=== PATIENT | male | born 1945 | race Caucasian/White ===

== ENCOUNTER → 2017-03-02 | Outpatient (REF) | payer MEDICARE ==
[2017-03-02 18:20] LABS: FERRITIN 259 NG/ML (26-388); TOTAL IRON BINDING CAPACITY 227 UG/DL (250-450)
[2017-03-02 21:02] LABS: VITAMIN B12 LEVEL 673 PG/ML
[2017-03-02 21:03] LABS: FOLATE 11.4 NG/ML
== END ==
LOC: M LAB REF 17:24
DX: N18.9 Chronic kidney disease, unspecified (principal); D63.1 Anemia in chronic kidney disease
CPT/HCPCS: 82746

== ENCOUNTER → 2017-06-15 | Outpatient (REF) | payer MEDICARE ==
[2017-06-15 13:37] LABS: OSMOLALITY URINE 413 MOSM/KG (500-800)
[2017-06-15 13:54] LABS: SODIUM,RANDOM URINE 97 MEQ/L
== END ==
LOC: M LAB REF 12:58
DX: E87.1 Hypo-osmolality and hyponatremia (principal); N18.4 Chronic kidney disease, stage 4 (severe)
CPT/HCPCS: 83935

== ENCOUNTER → 2018-07-18 | Outpatient (REF) | payer MEDICARE ==
[~2018-07-18] MED LIST: ALLO300T2 PO; AMLO5TAB2 PO; ATEN50TA2 PO; BENZ200C PO; CALC0.25 PO; COUM1TAB17 PO; CRES5TAB PO; DUONSOL IN; FISH100035 PO; INSULANT SC; LASI80TA PO; MILK10SU PO; NEXI1CAP3 PO; NYAM10003 TOP; PERC5TAB PO; POTA2INJ30 PO; SENO8.6T9 PO; TYLE325T5 PO
[2018-07-18 16:08] LABS: BASO # 0.1 10^3/uL (0.0-0.2); EOS # 0.2 10^3/uL (0.0-0.50); EOS % 2.7 % (0.0-3.0); HEMATOCRIT 33.8 % (42.0-52.0); HEMOGLOBIN 10.7 g/dl (13.5-17.5); LYMPH # 1.4 10^3/uL (1.5-4.5); LYMPH % 15.7 % (24.0-44.0); MEAN CORPUSCULAR HEMOGLOBIN 29.4 pg (27.0-33.0); MEAN CORPUSCULAR HGB CONC 31.7 g/dl (32.0-36.5); MEAN CORPUSCULAR VOLUME 92.9 fl (80.0-96.0); MONO # 0.9 10^3/uL (0.0-0.8); MONO % 10.5 % (0.0-5.0); NEUTROPHILS # 6.3 10^3/uL (1.8-7.7); NEUTROPHILS % 69.9 % (36.0-66.0); PLATELET COUNT, AUTOMATED 182 10^3/uL (150-450); RED BLOOD COUNT 3.64 10^6/uL (4.30-6.10)
[2018-07-18 16:53] LABS: ERYTHROCYTE SEDIMENTATION RATE 49 mm/hr (0-20)
== END ==
LOC: M LABDRAW1 15:45
PROVIDERS: ATTEND Physician Assistant
DX: Z47.1 Aftercare following joint replacement surgery (principal); Z79.01 Long term (current) use of anticoagulants

== ENCOUNTER → 2018-09-10 | Outpatient (CLI) | payer MEDICARE ==
--- NOTE | 2018-09-10 13:51 | REP ---
TRIPLE PHASE BONE SCAN PELVIS AND HIPS: Following the intravenous administration of 1.9 millicuries technetium 99m MDP, patient's pelvis and hips are imaged in the flow phase in the anterior and posterior projections. There is symmetrical blood flow bilaterally. Immediate blood pole and 2.5 hour delayed images are performed in the pelvis and hips in multiple projections. Photopenic area in the proximal left femur is compatible with metallic prosthesis. Mild increased uptake is seen in the left acetabulum. Mild decreased uptake is seen in the proximal left femur along the margins of the prosthesis. These findings may indicate loosening of the prosthesis. Electronically Signed by Juan Rodriguez MD 09/11/2018 09:56 A
== END ==
LOC: M RAD 07:41
PROVIDERS: ATTEND Orthopaedic Surgery
DX: Z47.1 Aftercare following joint replacement surgery (principal)
CPT/HCPCS: 78315; A9503

== ENCOUNTER 2019-01-31 19:41 | Emergency (ER) | payer MEDICAID, MEDICARE ==
[~2019-01-31] VITALS: Ht 172.7 cm; Wt 86.4 kg
[2019-01-31] MEDS ORDERED: IRON15CH PO (19:54)
[2019-01-31] MEDS ORDERED: HYDR25TA PO (19:54)
[2019-01-31] MEDS ORDERED: CARV12.5 (19:54)
[2019-01-31] MEDS ORDERED: MAGN400T14 PO (19:54)
[2019-01-31] MEDS ORDERED: COUM1TAB14 (19:54)
[2019-01-31] MEDS ORDERED: ISOS60TA2 (19:54)
[2019-01-31] MEDS ORDERED: SPIR50TA4 (19:54)
[2019-01-31 20:38] LABS: BASO % 0.6 % (0.0-1.0); EOS # 0.3 10^3/uL (0.0-0.5); EOS % 4.3 % (0.0-3.0); HEMATOCRIT 31.4 % (42.0-52.0); HEMOGLOBIN 10.1 g/dl (13.5-17.5); LYMPH # 0.9 10^3/uL (1.5-5.0); LYMPH % 14.2 % (24.0-44.0); MEAN CORPUSCULAR HEMOGLOBIN 31.7 pg (27.0-33.0); MEAN CORPUSCULAR HGB CONC 32.2 g/dl (32.0-36.5); MEAN CORPUSCULAR VOLUME 98.4 fl (80.0-96.0); MONO # 0.7 10^3/uL (0.0-0.8); MONO % 11.2 % (0.0-5.0); NEUTROPHILS # 4.4 10^3/uL (1.5-8.5); NEUTROPHILS % 69.2 % (36.0-66.0); PLATELET COUNT, AUTOMATED 143 10^3/uL (150-450); RED BLOOD COUNT 3.19 10^6/uL (4.30-6.10); WHITE BLOOD COUNT 6.3 10^3/uL (4.0-10.0)
[2019-01-31 20:53] LABS: INR 3.33; PARTIAL THROMBOPLASTIN TIME 43.3 SECONDS (25.0-38.4); PROTHROMBIN TIME 33.8 SECONDS (11.8-14.0)
[2019-01-31] MEDS ORDERED: PHYTONADIONE INJection 10 MG in NS 50 ML IV ONE (22:00)
[2019-01-31] MEDS ORDERED: SILVER NITRATE APPLICATOR TOP ONE (23:00)
[2019-01-31] MEDS ORDERED: SODIUM CHLORIDE NASAL 0.65% SPRAY BTL (OCEAN) ONE (23:14)
[2019-01-31 23:15] VITALS: BP 127/57
[2019-01-31] MEDS ORDERED: OXYMETAZOLINE NASAL SPRAY (AFRIN) ONE (23:15)
== END 2019-01-31 23:33 | disposition home or self-care (01) ==
LOC: M ED 19:41
DX: R04.0 Epistaxis (principal); D64.9 Anemia, unspecified; D69.6 Thrombocytopenia, unspecified; I48.91 Unspecified atrial fibrillation; I11.0 Hypertensive heart disease with heart failure; I50.9 Heart failure, unspecified; E11.9 Type 2 diabetes mellitus without complications; E78.5 Hyperlipidemia, unspecified; K21.9 Gastro-esophageal reflux disease without esophagitis; M10.9 Gout, unspecified; Z88.1 Allergy status to other antibiotic agents; Z79.899 Other long term (current) drug therapy; Z79.4 Long term (current) use of insulin; Z79.01 Long term (current) use of anticoagulants
CPT/HCPCS: 85025; 85610; 85730; 96365; 99284; J3430

== ENCOUNTER → 2019-11-21 | Outpatient (CLI) | payer MEDICARE, MEDICAID ==
[~2019-11-21] MED LIST changes: +CARV12.5; +COUM4TAB8; +HYDR25TA PO; +IRON15CH PO; +ISOS60TA2; +MAGN400T14 PO; +SPIR50TA4
--- NOTE | 2019-12-06 08:36 | REP ---
THREE-PHASE BONE SCAN OF THE HIPS HISTORY: Presence of artificial left hip joint. Rule out loosening versus infection. COMPARISON: Bone scan imaging from 09/10/2018. TECHNIQUE: 20.3 mCi of Technetium-99m MDP is injected and standard three-phase bone scanning is acquired. SCINTIGRAPHIC FINDINGS: Anterior and posterior blood flow images remain unremarkable. Blood pool images show mildly increased uptake around the femoral head component of the prosthesis on the left. This is a little more prominent than on the prior bone scan of 09/10/2018. Delayed scan images demonstrate curvilinear increased signal intensity along the femoral head component of the left hip prosthesis. This is a little more intense than on the prior study, but it is diffuse. No definite loosening pattern. There is no focus of increased uptake at the femoral stem portion of the component. IMPRESSION: There is increased uptake along the femoral head component of the patients arthroplasty on the left and this is somewhat more prominent than on the comparison scintigraphy of 09/10/2018. No definite evidence of loosening. No abnormal uptake at the femoral stem portion of the prosthesis. MTDD
== END ==
LOC: M RAD 10:42
PROVIDERS: ATTEND Orthopaedic Surgery
DX: Z96.642 Presence of left artificial hip joint (principal)
CPT/HCPCS: 78315; A9503

== ENCOUNTER → 2019-11-28 | Outpatient (CLI) | payer MEDICARE, MEDICAID ==
--- NOTE | 2019-12-06 08:37 | REP ---
LEFT HIP ARTHROCENTESIS This procedure was performed by ALECIA Brown, under the direct supervision of Dr. Rodriguez. HISTORY: Total left hip replacement, evaluate for infection. The risks and benefits of the procedure were explained to the patient, and an informed consent was obtained both verbally and written. Specific attention was paid to the fact that the patient was on warfarin. Directly prior to the start of the procedure, a formal time-out was done in the procedure room. TECHNIQUE: The left femoral neck joint space was localized using fluoroscopic guidance. The skin was prepped and draped in a sterile fashion. 5ml of 1% Lidocaine 10 mg/mL was used as a local anesthetic. Using fluoroscopic guidance, a 22-gauge spinal needle was inserted and advanced into the joint. No fluid presented itself for removal. The needle was manipulated into different positions along the hip, so no joint fluid presented itself. The needle was then removed and pressure was applied to the area. The patient tolerated the procedure well and there were no immediate complications. A dressing was applied to the area, and the patient was discharged home. 0.3 minutes of fluoroscopy time was utilized for this procedure. This procedure has been dictated by ALECIA Brown with Dr. Rodriguez. [facility]ITAL[facility]igar
== END ==
LOC: M IRPRO 11:11
PROVIDERS: ATTEND Orthopaedic Surgery
DX: M25.552 Pain in left hip (principal)

== ENCOUNTER → 2020-01-20 | Outpatient (CLI) | payer MEDICAID, MEDICARE ==
--- NOTE | 2020-01-20 13:10 | REPVR ---
PROCEDURE INFORMATION: Exam: MR Lumbar Spine Without Contrast. Exam date and time: 01/20/2020 11:46 AM Age: 74 years old Clinical indication: Low back pain; Additional info: Lbp TECHNIQUE: Imaging protocol: Multiplanar magnetic resonance images of the lumbar spine without intravenous contrast. COMPARISON: No relevant prior studies available. FINDINGS: Vertebrae: There is no fracture or listhesis. Normal vertebral body alignment and heights are preserved. There is severe intervertebral disc space loss at L5/S1, with near osseous fusion. Spinal cord: Normal signal. No cord compression. L1-L2: No significant disc disease. No significant spinal canal stenosis. No neural foraminal stenosis. L2-L3: No significant disc disease. No significant spinal canal stenosis. No neural foraminal stenosis. L3-L4: No significant disc disease. No significant spinal canal stenosis. No neural foraminal stenosis. L4-L5: There is diffuse disc bulging with a central protrusion. There is severe facet and ligamentous hypertrophy, with trace fluid within the facet joints. There is severe canal stenosis. There is mild bilateral neural foraminal narrowing. L5-S1: There is dorsal spondylitic ridging. There is mild facet hypertrophy. There is [id number] right and moderate left neural foraminal narrowing. Vasculature: There is mild aneurysmal dilatation of the abdominal aorta with ectasia of the iliac arteries bilaterally. Other: There are bilateral renal cysts. Soft tissues: Unremarkable. IMPRESSION: Degenerative disc disease and spondylosis. At L4/5, changes contribute to severe acquired canal stenosis. Electronically signed by: Sarah Chow On 01/20/2020 13:10:32 PM
== END ==
LOC: M RAD 11:04
PROVIDERS: ATTEND Orthopaedic Surgery
DX: M51.36 Other intervertebral disc degeneration, lumbar region (principal); M51.26 Other intervertebral disc displacement, lumbar region; M47.896 Other spondylosis, lumbar region